=== PATIENT | male | born 1935 | race Caucasian/White ===

== ENCOUNTER → 2016-04-01 | Outpatient (REF) | payer OTHER ==
[~2016-04-01] MED LIST: ATEN25TA PO; LISI40TAB PO; PERC5TAB6 PO; TERA5CA PO; TERAZOSIN PO
== END | disposition home or self-care (01) ==
LOC: M LAB REF 13:16
PROVIDERS: ATTEND Internal Medicine Medical Oncology
DX: C34.90 Malignant neoplasm of unspecified part of unspecified bronchus or lung (principal)
CPT/HCPCS: 84153; G0463

== ENCOUNTER → 2016-05-13 | Outpatient (REF) | payer OTHER | LOC: M LAB REF 12:25 | PROVIDERS: ATTEND Internal Medicine Medical Oncology | DX: C61 Malignant neoplasm of prostate (principal) ==

== ENCOUNTER → 2016-08-29 | Outpatient (REF) | payer OTHER | LOC: M LAB REF 14:16 | PROVIDERS: ATTEND Internal Medicine Medical Oncology | DX: C61 Malignant neoplasm of prostate (principal) ==